=== PATIENT | male | born 1960 | race African-American/Black ===

== ENCOUNTER → 2021-01-30 | Outpatient (CLI) | payer MEDICAID ==
[2014-06-20 06:04] VITALS: BP 89/49
[~2021-01-30] MED LIST: ALBU2.5V8 IH; ALBU8.5H6 IH; CELE200C PO; FERR325T14 PO; FERR500P8 MC; IBUP200T58 PO; INSU100I16 SQ; INSU100I17 SQ; INSU100V13 SQ; METF10007 PO; OXYC1TAB15 PO; RISP1TAB88 PO; WARF2TAB96 PO
--- NOTE | 2021-01-31 09:49 | KCIC ---
Study: XR HIP (WITH OR WITHOUT PELVIS)LEFT 1 VIEW Indication: Iliopsoas bursitis. Chronic pain. Comparison: None. Findings: Mild bilateral hip arthrosis without joint space collapse. Degenerative changes are slightly greater on the left to include osseous proliferation and probable subchondral cyst formation at the superolat eral acetabulum and a degenerative cam-type deformity. Symmetric density of the femoral heads. Minima l chronic osseous remodeling at both lesser trochanters. No advanced arthrosis at the sacroiliac join ts or pubic symphysis. Poorly characterized degenerative changes at the lower lumbar spine with appar ent facet arthrosis at L4-L5 and minimal right eccentric disc space narrowing at this level. Impression: No acute radiographic abnormality at the left hip or elsewhere throughout the partially assessed pelv is. Mild arthrosis at the left slightly more so than right hips. Electronically signed by: DMITRI GRIGSBY MD (01/31/2021 9:46 AM) [id number]
== END ==
LOC: KCIC 12:53
PROVIDERS: ATTEND Family Medicine
DX: M17.0 Bilateral primary osteoarthritis of knee (principal); M70.72 Other bursitis of hip, left hip; M47.816 Spondylosis without myelopathy or radiculopathy, lumbar region
CPT/HCPCS: 73501